=== PATIENT | female | born 1990 | race African-American/Black ===

== ENCOUNTER 2016-10-23 09:51 | Inpatient (IN) | payer OTHER ==
[~2016-10-23] VITALS: Ht 172.7 cm; Wt 123.3 kg
[2016-10-23] MEDS ORDERED: LACTATED RINGER'S 1,000 ML IV SCH (10:04)
[2016-10-23 10:07] VITALS: Ht 172.7 cm; Wt 123.3 kg
[2016-10-23] MEDS ORDERED: METHYLERGONOVINE 0.2 MG INJ IM PRN ×2 (10:30→23:30)
[2016-10-23] MEDS ORDERED: CEFAZOLIN 2 GM/50 ML (PMX) 50 ML IV SCH (10:30)
[2016-10-23] MEDS ORDERED: OXYTOCIN 30 UNITS/LR 500 ML IV PRN ×2 (10:30→23:30)
[2016-10-23] MEDS ORDERED: OXYTOCIN 30 UNITS/LR 500 ML IV SCH (10:30)
[2016-10-23] MEDS ORDERED: CARBOPROST 250 MCG INJ IM PRN ×2 (10:30→23:30)
[2016-10-23] MEDS ORDERED: MISOPROSTOL 200 MCG TAB PR PRN ×2 (10:30→23:30)
[2016-10-23] MEDS ORDERED: AMPICILLIN 2 GM/NS (PMX) 100 ML IV SCH (10:30)
[2016-10-23 11:08] LABS: BASOPHILS % 0.3 % (0.0-2.0); EOSINOPHILS # 0.1 10^3/ul (0.0-0.5); EOSINOPHILS % 1.3 % (0.0-7.0); HEMATOCRIT 37.1 % (37.0-47.0); HEMOGLOBIN 12.8 g/dl (12.0-16.0); LYMPHOCYTES # 1.4 10^3/ul (0.8-2.9); LYMPHOCYTES % 13.1 % (15.0-51.0); MEAN CORPUSCULAR HEMOGLOBIN 31.2 pg (29.0-33.0); MEAN CORPUSCULAR HGB CONC 34.5 g/dl (32.0-37.0); MEAN CORPUSCULAR VOLUME 90.5 fl (82.0-101.0); MEAN PLATELET VOLUME 11.4 fl (7.4-10.4); MONOCYTE # 0.7 10^3/ul (0.3-0.9); MONOCYTES % 6.3 % (0.0-11.0); NEUTROPHIL # 8.3 10^3/ul (1.6-7.5); NEUTROPHILS % 77.5 % (39.0-77.0); PLATELET COUNT 158 10^3/UL (140-415); WHITE BLOOD COUNT 10.7 10^3/ul (4.8-10.8)
[2016-10-23 11:30] LABS: INR 1.02; PROTIME 13.4 Sec (12.2-14.2)
[2016-10-23 11:32] LABS: PARTIAL THROMBOPLASTIN TIME 29.4 Sec (25.0-35.0)
[2016-10-23 11:56] VITALS: BP 129/81; PULSE 68
[2016-10-23 13:22] LABS: BARBITURATES Negative (NEGATIVE); BENZODIAZEPINES Negative (NEGATIVE); CANNABINOIDS Negative (NEGATIVE); COCAINE Negative (NEGATIVE); OPIATES Negative (NEGATIVE)
[2016-10-23] MEDS ORDERED: OXYTOCIN 30 UNITS/LR 500 ML BAG IV ONE (18:40)
[2016-10-23] MEDS ORDERED: CEFAZOLIN 1 GM INJ ONE (18:40)
[2016-10-23] MEDS ORDERED: ONDANSETRON 4 MG INJ ONE (18:41)
[2016-10-23] MEDS ORDERED: OXYTOCIN 10 UNIT INJ ONE (18:41)
[2016-10-23] MEDS ORDERED: PHENYLephrine (100 MCG/ML) 5ML SYG ONE ×2 (18:41→19:29)
[2016-10-23] MEDS ORDERED: morphine SULFATE/PF (10 MG/10 ML) INJ ONE (18:41)
[2016-10-23] MEDS ORDERED: METOCLOPRAMIDE 10 MG INJ ONE (19:39)
[2016-10-23] MEDS ORDERED: MIDAZOLAM 1 MG/ML 2 ML INJ ONE (19:39)
--- NOTE | 2016-10-23 20:23 | HP ---
Date/Time of Note Date/Time of Note DATE: 10/23/16 TIME: 20:18 OB - History Hx of Present Free Text/Dictation admitted for repeat C/S at term Last Menstrual Period: Jan 24, 2016 Estimated Due Date: Oct 30, 2016 : 2 Para: 1 Care: Good Care Ultrasounds: Normal mid trimester US Obstetrical Complications: None, Other (patient with history of psychiatric disease ) Medical Complications: None Past Family/Social History * Past Medical, Surgical, Family and Obstetric Histories reviewed from chart. Blood Type: O+ Rubella: immune RPR/VDRL: Negative GBS Status: Positive HBsAG: Negative OB Admission Exam Vital Signs Vital Signs Vital Signs Date Time Temp Pulse Resp B/P Pulse Ox O2 Delivery O2 Flow Rate FiO2 10/23/16 11:56 98.2 68 129/81 Room Air Physical Exam HEENT: WNL Heart: Rhythm Normal Lungs: Clear, Equal Abdomen: WNL Extremities: Normal Reflexes: Normal Cervical Dilatation: None Effacement: 0% Station: -3 Membranes: Intact Heart Rate: 130's Accelerations: Accelerations Present Decelerations: No Decelerations Varibility: Marked Contractions on Admission: None Last 72 hours Lab Results CBC & BMP 10/23/16 10:35 OB Assessment/Plan Reason for admission: section Other Assessment: term gestation previous C/S X 1 Other plan: repeat C/S DELICIA ANDUJAR MD Oct 23, 2016 20:22
--- NOTE | 2016-10-23 20:25 | OPR ---
Operative Report Planned Procedure Procedure date Oct 23, 2016 Procedure(s) repeat C/S Performed by see signature line Assisting provider: BAKARI IVEY MD Anesthesiologist: JACKY BARCENAS MD Anesthesia Type: spinal Procedure Description Under satisfactory anaesthesia a Pfannenstiel incision was made two fingerbreadth above and parallel to the symphysis of pubis around the previous scar and previous scar was removed Incision was extended laterally to the border of the Recti muscles on either sides. Incision was carried down with sharp and blunt dissection until fascia was reached. Anterior Recti muscle fascia was incised in mid portion and incision extended laterally to the border of skin incision. Fascia was mobilized from muscle superiorly and Recti muscles were from midline using sharp and blunt dissection. Peritoneum was visualized; Avoiding bowel and bladder it was incised . Incision was extended superiorly and inferiorly. Bladder blade was placed. Posterior peritoneum covering the lower segment of the uterus and lower segment of the uterus were incised.Low transverse uterine incision was made on lower segment of the uterus. Incision extended laterally to the border of Round Lig. on either sides and baby was delivered from OT. position . Amniotic fluid appeared meconium stained . Cord blood was obtained and cord had 3 vessels . Placenta was delivered spontaneously and appeared intact and complete. Intrauterine cavity was rubbed with a laparotomy sponge. Uterine incision was closed in 2 layers using running stitches of No1 Monocryl. Hemostasis appeared secure. Ovaries and Fallopian tubes were within normal limits. Announcing needle, lap sponge and instrument count to be correct abdomen was closed in layers as follows: Peritoneum and Recti muscles with running stitches of 20 Vicryl. Fascia with running stitch of No 1 PDS. Subcutaneous tissue with running stitches of 20 Chromic and skin was closed using bismark. Patient tolerated the procedure well and was transferred to [facility] in good condition. Post-Procedure Post-procedure diagnosis S/P C/S Findings: Live Baby Estimated blood loss: other (500) Specimen(s): no Grafts/Implants: no Complication(s): no Pt Condition post procedure: stable Disposition: PACU Physician Certification I, the undersigned physician, hereby certify that I have discussed the procedure described in this consent form with this patient (or the patient's legal loan representative), including: * The risk and benefits of the procedure; * Any adverse reactions that may reasonably be expected to occur; * Any alternative efficacious methods of treatment which may be medically viable ; * The potential problems that may occur during recuperation; * Potential for blood transfusion and associated risks/benefits; and * Any research or economic interest I may have regarding this treatment. I further certify that the patient/legally responsible person was encouraged to ask question and that all questions were answered. DELICIA ANDUJAR MD Oct 23, 2016 20:25
[2016-10-23 21:15] VITALS: BP 112/56; PULSE 71; RESP 19
[2016-10-23 21:45] VITALS: BP 110/73; PULSE 74; RESP 19
[2016-10-23] MEDS ORDERED: ONDANSETRON 4 MG INJ IV PRN (22:00)
[2016-10-23] MEDS ORDERED: NALOXONE (0.4 MG/ML) INJ IV PRN ×3 (22:00→23:00)
[2016-10-23 22:15] VITALS: BP 119/59; PULSE 68; RESP 19
[2016-10-23 22:45] VITALS: BP 115/63; PULSE 85; RESP 19
[2016-10-23] MEDS ORDERED: morphine 2 MG INJ IV PRN ×2 (23:00)
[2016-10-23] MEDS ORDERED: LANOLIN 7 GM TUBE TOP PRN (23:30)
[2016-10-23] MEDS ORDERED: NA PHOSPHATE/BIPHOS 133 ML ENEMA PR PRN (23:30)
[2016-10-23 23:45] VITALS: BP 118/88; PULSE 74; RESP 18
[2016-10-23] MEDS: LACTATED RINGER'S 1,000 ML IV SCH (23:55)
[2016-10-23] MEDS: DIPHENHYDRAMINE 50 MG INJ IV PRN (23:55)
[2016-10-24 04:00] VITALS: BP 109/63; PULSE 78; RESP 18
[2016-10-24] MEDS: CEFAZOLIN 2 GM/50 ML (PMX) 50 ML IV SCH ×3 (05:06→15:17)
[2016-10-24] MEDS: CLINDAMYCIN 300 MG CAP PO SCH ×3 (06:20→17:39)
[2016-10-24] MEDS: LACTATED RINGER'S 1,000 ML IV SCH ×2 (07:37→15:50)
[2016-10-24 07:40] VITALS: BP 113/56; PULSE 78; RESP 18
[2016-10-24] MEDS: SENNA/DOCUSATE NA (8.6MG/50MG) TAB PO SCH ×2 (08:30→22:02)
[2016-10-24 09:25] LABS: BASOPHILS % 0.4 % (0.0-2.0); EOSINOPHILS # 0.1 10^3/ul (0.0-0.5); EOSINOPHILS % 0.6 % (0.0-7.0); HEMOGLOBIN 11.9 g/dl (12.0-16.0); LYMPHOCYTES % 9.1 % (15.0-51.0); MEAN CORPUSCULAR HEMOGLOBIN 30.7 pg (29.0-33.0); MEAN CORPUSCULAR VOLUME 90.4 fl (82.0-101.0); MEAN PLATELET VOLUME 11.5 fl (7.4-10.4); MONOCYTE # 0.8 10^3/ul (0.3-0.9); MONOCYTES % 6.8 % (0.0-11.0); NEUTROPHIL # 9.4 10^3/ul (1.6-7.5); PLATELET COUNT 147 10^3/UL (140-415); RED BLOOD COUNT 3.87 10^6/ul (4.20-5.40); RED CELL DISTRIBUTION WIDTH 12.9 % (11.5-14.5); WHITE BLOOD COUNT 11.4 10^3/ul (4.8-10.8)
[2016-10-24] MEDS ORDERED: BISACODYL 10 MG SUPP PR ONE (10:30)
[2016-10-24] MEDS: DIPHENHYDRAMINE 50 MG INJ IV PRN (10:43)
[2016-10-24] MEDS ORDERED: KETOROLAC 30 MG INJ IV STA (13:40)
[2016-10-24 16:11] VITALS: BP 113/56; PULSE 76; RESP 18
--- NOTE | 2016-10-24 18:37 | PN ---
Date/Time of Note Date/Time of Note DATE: 10/24/16 TIME: 18:35 Assessment/Plan VTE Prophylaxis VTE Prophylaxis Intervention: ambulation Lines/Catheters IV Catheter Type (from Nrsg): Peripheral IV Assessment/Plan Assessment/Plan Status post postop day 1 Advance diet and ambulate Repeat CBC following day Subjective 24 Hr Interval Summary No bowel movements Passing flatus Constitutional: BM, ambulates, flatus, improved, no complaints, urine output Pain Control: well controlled Exam/Review of Systems Vital Signs Vitals Vital Signs Date Time Temp Pulse Resp B/P Pulse Ox O2 Delivery O2 Flow Rate FiO2 10/24/16 16:11 98.5 76 18 113/56 Room Air 10/24/16 15:45 98 21 Intake and Output 10/23/16 10/23/16 10/24/16 15:00 23:00 07:00 Intake Total 775 ml 1250 ml Output Total 700 ml 700 ml Balance 775 ml 550 ml -700 ml Exam Free Text/Dictation Abdomen is soft nontender, likely tender around incision Abdomen is not distended Incision is covered Constitutional: alert, oriented, well developed Psych: nl mood/affect, no complaints Head: atraumatic, normocephalic Eyes: EOMI, nl conjunctiva, nl lids, nl sclera ENMT: mucosa pink and moist, nl external ears & nose, nl lips & teeth, nl nasal mucosa & septum Neck: non-tender, supple Respiratory: clear to auscultation, normal air movement Cardiovascular: nl pulses, regular rate and rhythm Gastrointestinal: nl liver, spleen, non-tender, soft Drains None Musculoskeletal: nl extremities to inspection, nl gait and stance Extremities: normal pulses Neurological: FLAT KNITTER II-XII intact, nl mental status, nl speech, nl strength Skin: nl turgor, rash or lesions Lymph: nl lymph nodes Results Result Diagram: 10/24/16 0844 DELICIA ANDUJAR MD Oct 24, 2016 18:37
[2016-10-24] MEDS ORDERED: OXYCODONE/ACETAMINOPHEN (5/325) TAB PO PRN (18:45)
[2016-10-24 19:50] VITALS: BP 129/69; PULSE 78; RESP 19
[2016-10-24] MEDS: HYDROCODONE/APAP (5/325) TAB PO PRN (22:03)
[2016-10-25] MEDS: CLINDAMYCIN 300 MG CAP PO SCH ×5 (00:16→23:46)
[2016-10-25 04:30] VITALS: BP 110/71; PULSE 81; RESP 19
[2016-10-25] MEDS: HYDROCODONE/APAP (5/325) TAB PO PRN ×3 (05:09→15:13)
[2016-10-25 07:40] VITALS: BP 117/61; PULSE 73; RESP 18
[2016-10-25] MEDS: SENNA/DOCUSATE NA (8.6MG/50MG) TAB PO SCH ×2 (08:27→21:25)
[2016-10-25 09:34] LABS: BASOPHILS % 0.3 % (0.0-2.0); EOSINOPHILS # 0.1 10^3/ul (0.0-0.5); EOSINOPHILS % 1.1 % (0.0-7.0); HEMATOCRIT 35.2 % (37.0-47.0); HEMOGLOBIN 11.6 g/dl (12.0-16.0); LYMPHOCYTES # 1.4 10^3/ul (0.8-2.9); LYMPHOCYTES % 13.7 % (15.0-51.0); MEAN PLATELET VOLUME 11.3 fl (7.4-10.4); MONOCYTE # 0.7 10^3/ul (0.3-0.9); MONOCYTES % 6.8 % (0.0-11.0); NEUTROPHIL # 8.1 10^3/ul (1.6-7.5); NEUTROPHILS % 77.1 % (39.0-77.0); PLATELET COUNT 157 10^3/UL (140-415); RED BLOOD COUNT 3.87 10^6/ul (4.20-5.40); RED CELL DISTRIBUTION WIDTH 13.2 % (11.5-14.5); WHITE BLOOD COUNT 10.5 10^3/ul (4.8-10.8)
--- NOTE | 2016-10-25 12:21 | DS ---
Date/Time of Note Date/Time of Note DATE: 10/25/16 TIME: 12:19 Discharge Summary Admission/Discharge Info Admit Date/Time Oct 23, 2016 at 09:51 Discharge Date/Time October 26, 2016 Discharge Diagnosis Status post Patient Condition: Good Procedures Repeat delivery Hx of Present Illness 26-year-old female underwent repeat Hospital Course Complicated Follow-up Plan 3 4 days in clinic for staple removal Primary Care Provider Care Physician No Primary Time spent on discharge: > 30 minutes Pending Labs Laboratory Tests Test 10/25/16 09:02 White Blood Count 10.510^3/ul (4.8-10.8) Red Blood Count 3.8710^6/ul (4.20-5.40) Hemoglobin 11.6g/dl (12.0-16.0) Hematocrit 35.2% (37.0-47.0) Mean Corpuscular Volume 91.0fl (82.0-101.0) Mean Corpuscular Hemoglobin 30.0pg (29.0-33.0) Mean Corpuscular Hemoglobin Concent 33.0g/dl (32.0-37.0) Red Cell Distribution Width 13.2% (11.5-14.5) Platelet Count 02288^3/UL (140-415) Mean Platelet Volume 11.3fl (7.4-10.4) Neutrophils % 77.1% (39.0-77.0) Lymphocytes % 13.7% (15.0-51.0) Monocytes % 6.8% (0.0-11.0) Eosinophils % 1.1% (0.0-7.0) Basophils % 0.3% (0.0-2.0) Nucleated Red Blood Cells % 0.0/100WBC (0.0-0.0) Neutrophils # 8.110^3/ul (1.6-7.5) Lymphocytes # 1.410^3/ul (0.8-2.9) Monocytes # 0.710^3/ul (0.3-0.9) Eosinophils # 0.110^3/ul (0.0-0.5) Basophils # 0.010^3/ul (0.0-0.1) Nucleated Red Blood Cells # 0.010^3/ul (0.0-0.0) LILLIE-TABIBZADEH,KAMROOZ MD Oct 25, 2016 12:21
--- NOTE | 2016-10-25 12:22 | DS ---
Date/Time of Note Date/Time of Note Home next day DATE: 10/25/16 TIME: 12:21 Obstetrical Discharge Record Final Diagnosis Final Diagnosis: Term delivered Other Final Diagnosis Status post delivery Section Section: Repeat Condition on Discharge Physical Assessment Last Vitals: See nurse's notes Voiding: Yes Bowel Movement: Yes Breast: Soft, non-tender, Filling Fundus: Firm Abdomen and Incision: Abdomen is soft, no distention or tenderness, is present Incision is without induration or erythema and healing well Calf Tenderness: No Patient Condition: Good DELICIA ANDUJAR MD Oct 25, 2016 12:22
--- NOTE | 2016-10-25 12:23 | PD.PPDC ---
MEDICAL HISTORIAN Discharge Instruction Provider Information Physician Information 26-year-old female has repeat delivery Diagnosis Final Diagnosis: Status post Condition Patient Condition: Good Diet Diet: Resume Regular Diet Activity/Restrictions Activity: May Shower Restrictions: No Exercising No Lifting Nothing in the Vagina Return to Work or School: Dec 28, 2016 Follow-up Follow-up with Physician: 3, 4, Day/Days (In clinic for staple removal) Return to clinic for DEVELOPMENT ADVISOR Instructions: Fever greater than 101 Chills OB Instructions: Breast Tenderness Depression Comment: Pelvic she has no heart activity for 2 months Surgical Instructions: Incisional Drainage Incisional Redness DELICIA ANDUJAR MD Oct 25, 2016 12:23
[2016-10-25 15:30] VITALS: BP 118/80; PULSE 78; RESP 18
[2016-10-25] MEDS ORDERED: ONDANSETRON 4 MG INJ IV PRN (18:00)
[2016-10-25] MEDS: DEXTROSE 5%-LR 1,000 ML IV SCH (18:06)
[2016-10-25 20:40] VITALS: BP 128/79; PULSE 76; RESP 20
[2016-10-26] MEDS: DEXTROSE 5%-LR 1,000 ML IV SCH (02:00)
[2016-10-26] MEDS: CLINDAMYCIN 300 MG CAP PO SCH ×2 (05:47→12:03)
[2016-10-26 08:20] VITALS: BP 119/81; PULSE 69; RESP 20
[2016-10-26] MEDS ORDERED: DIPHTH/TET/ACEL PERTUSS (ADULT) 0.5 ML VIAL IM* ONE (09:00)
[2016-10-26] MEDS ORDERED: MEASLES,MUMPS,RUBELLA VACCINE INJ SC* ONE (09:00)
[2016-10-26] MEDS: SENNA/DOCUSATE NA (8.6MG/50MG) TAB PO SCH (12:03)
[2016-10-26] MEDS: HYDROCODONE/APAP (5/325) TAB PO PRN (12:27)
== END 2016-10-26 14:35 | disposition home or self-care (01) | DRG 765 ==
LOC: L-D 09:51 → PP1 23:36
PROVIDERS: ADMIT Obstetrics & Gynecology; ATTEND Obstetrics & Gynecology
PROC: 10D00Z1 Extraction of Products of Conception, Low, Open Approach (ICD-10-PCS; principal; 2016-10-23 15:00)
DX: O34.219 Maternal care for unspecified type scar from previous cesarean delivery (principal); Z68.41 Body mass index [BMI] 40.0-44.9, adult; O99.214 Obesity complicating childbirth; E66.01 Morbid (severe) obesity due to excess calories
CPT/HCPCS: 80307; 85025; 85610; 85730; 86592; 86850; 86900; 86901; 87340; 90715; 94760; 99464; J0290; J0690; J1200; J1885; J2250; J2274; J2370; J2405; J2590; J2765; J7120; J7121